=== PATIENT | male | born 1955 | race Caucasian/White ===

== ENCOUNTER 2020-11-15 07:57 | Day surgery (SDC) | payer BC, MEDICARE ==
[2020-11-15] MEDS ORDERED: fentaNYL 100 MCG/2 ML SDV ONE (08:24)
[2020-11-15] MEDS ORDERED: Midazolam 1 MG/ML 2 ML SDV ONE (08:24)
[2020-11-15] MEDS ORDERED: Propofol 200 MG/20 ML SDV ONE (08:24)
[2020-11-15] MEDS ORDERED: Sodium Chloride 0.9% 1,000 ML IV SCH (10:00)
[2020-11-15 11:08] VITALS: BP 121/81; PULSE 63
--- NOTE | 2020-11-16 08:21 | OR ---
DATE OF PROCEDURE: 11/15/2020 SURGEON: Randall Donnelly MD PROCEDURE: Colonoscopy. FINDINGS: 1. Sigmoid colon polyp, approximately 5 mm, completely removed using cold biopsy forceps. 2. Rectal polyp, approximately 5 mm, completely removed using cold biopsy forceps. COMPLICATION: None. RF TECHNICIAN: None. ANESTHESIA: MAC. PREOPERATIVE DIAGNOSIS: Family history of colorectal cancer. POSTOPERATIVE DIAGNOSIS: Family history of colorectal cancer. RISKS: Risks, benefits, alternatives, and limitations including, but not limited to infection, bleeding, perforation, false positives, false negatives were explained to the patient and they wished to proceed. PROCEDURE IN DETAIL: The patient was placed in left lateral decubitus position. Digital rectal exam was performed without abnormality. Scope was introduced and advanced atraumatically to the ileocecal valve. A photo was taken of the appendiceal orifice. The scope was brought back to the ascending, transverse, descending colon, and retroflexed. No evidence of old or new blood. No masses. The aforementioned polyps were identified and completely removed. No diverticulosis. No abnormalities on retroflexion. Greater than 8 minutes were spent removing the scope. The prep was marginal, approximately 85% of luminal surface could be seen with solid and liquid stool noted. No abnormalities on retroflexion. The patient tolerated procedure well. Randall Donnelly MD /[id number]
== END 2020-11-15 11:17 | disposition home or self-care (01) ==
LOC: JP.SDS 07:57
PROVIDERS: ATTEND Surgery
DX: Z12.11 Encounter for screening for malignant neoplasm of colon (principal); K63.5 Polyp of colon; K62.1 Rectal polyp; E66.9 Obesity, unspecified; Z80.0 Family history of malignant neoplasm of digestive organs
CPT/HCPCS: 45380; J2250; J2704; J3010; J7030